=== PATIENT | male | born 1985 | race American Indian/Alaskan Native ===

== ENCOUNTER 2017-11-12 17:14 | Emergency (ER) | payer OTHER ==
[2017-11-12 17:22] VITALS: BP 119/76
--- NOTE | 2017-11-12 17:58 | Emergency Department Report ---
ED Laceration HPI - HPI Occurred When: Today Location: Upper Extremity Severity: mild Tetanus Status: Up to Date (05/2017) Laceration Symptoms: Yes Pain, No Foreign Body Sensation, No Numbness, No Weakness Other History: This is a 32-year-old male that presents with a laceration to left ring finger. They stated that he was pulling out something from his pocket and unknown piece of item causing laceration. Patient states that he is up-to-date tetanus as of May 2017. Patient denies any pus, drainage, fever , chills, nausea, vomiting, headache or stiff neck. Patient allergies tramadol. Past medical history includes HIV status ED for count is within normal limits. <MAI MCCANN - Last Filed: 11/12/17 17:53> <JOSSELYN MOISE - Last Filed: 11/13/17 19:19> - HPI Chief Complaint: Wound/Laceration Stated Complaint: FINGER INJURY Time Seen by Provider: 11/12/17 17:29 ED Review of Systems ROS: Stated complaint: FINGER INJURY Other details as noted in HPI Constitutional: denies: chills, fever Eyes: denies: eye pain, eye discharge, vision change ENT: denies: ear pain, throat pain Respiratory: denies: cough, shortness of breath, wheezing Cardiovascular: denies: chest pain, palpitations Endocrine: no symptoms reported Gastrointestinal: denies: abdominal pain, nausea, diarrhea Genitourinary: denies: urgency, dysuria Musculoskeletal: denies: back pain, joint swelling, arthralgia Skin: denies: rash, lesions Neurological: denies: headache, weakness, paresthesias Psychiatric: denies: anxiety, depression Hematological/Lymphatic: denies: easy bleeding, easy bruising <MAI MCCANN - Last Filed: 11/12/17 17:53> ROS: Stated complaint: FINGER INJURY Other details as noted in HPI <JOSSELYN MOISE - Last Filed: 11/13/17 19:19> ED Past Medical Hx - Past Medical History Previous Medical History?: Yes Hx HIV: Yes - Surgical History Past Surgical History?: No - Social History Smoking Status: Current Every Day Smoker Substance Use Type: Marijuana <MAI MCCANN - Last Filed: 11/12/17 17:53> <JOSSELYN MOISE - Last Filed: 11/13/17 19:19> - Medications Home Medications: Home Medications Medication Instructions Recorded Confirmed Last Taken Type HYDROcodone/ACETAMINOPHEN 1 tab PO Q6H PRN 09/27/13 09/27/13 09/27/13 History [Hydrocodon-Acetaminophen 5-300 mg] Ondansetron [Zofran] 4 mg PO Q8HR PRN 09/27/13 09/27/13 09/27/13 History Promethazine [Phenergan] 25 mg TN Q6HR PRN 09/27/13 09/27/13 09/27/13 History Ranitidine HCl [Zantac] 300 mg PO QDAY 09/27/13 09/27/13 09/27/13 History Amitriptyline [Elavil] 50 mg PO QHS #30 tab 09/28/13 Unknown Rx Ibuprofen [Motrin] 600 mg PO Q8H PRN #30 tablet 11/12/17 Unknown Rx Sulfamethoxazole/Trimethoprim 1 each PO BID #14 tablet 11/12/17 Unknown Rx [Bactrim DS TAB] Laceration Physical Exam - Exam General: Vital signs noted. No distress. Alert and acting appropriately. GENERAL: The patient is a well-developed, well-nourished in no apparent distress. Patient is alert and acting appropriately for age. Alert and oriented 3, no apparent distress, normal gait, atraumatic. HEENT: Head is normocephalic and atraumatic. PERRL, Extraocular muscles are intact. Pupils are equal, round, and reactive to light and accommodation. Nares appeared normal. Mouth is well hydrated and without lesions. Mucous membranes are moist. Posterior pharynx clear of any exudate or lesions. Mouth is well hydrated and without lesions. Tonsils not erythematous or swollen. Uvula midline. Tongue elevated. Mucous members are moist. Posterior pharynx clear, no exudate or lesions. Patent airways. NECK: Supple. No carotid bruits. No lymphadenopathy or thyromegaly.nontender. No meningitic signs are noted. LUNGS: Clear to auscultation. Non labor breathing. No intercostal retractions. Symmetrical with respiration, no wheezing, no rales, or crackles. HEART: Regular rate and rhythm without murmur, rubs or gallops. No reproducible. S1, S2 present, regular rate and rhythm without murmur, no rubs, no gallops. ABDOMEN: Soft, nontender, and nondistended. Positive bowel sounds. No hepatosplenomegaly was noted. No guarding or rebound tenderness, negative epigastric bruit. Negative psoas sign, negative herman sign, negative McBurneys sign EXTREMITIES: Without any cyanosis, clubbing, rash, lesions or edema. Peripheral pulses intact. Capillary refill less than 2 seconds. Full range of motion bilaterally. NEUROLOGIC: Cranial nerves II through XII are grossly intact. Alert and oriented x 3. Normal gait. Symmetrical strength and sensation. Reflexes 2+ throughout. Cerebellar testing normal. GCS score of 15. PSYCHIATRIC: Normal affect with no suicidal or homicidal ideations. Skin: One centimeter superficial laceration to left ring finger. Tender to touch. Wound Length (cm): 1 Laceration Location: Upper Extremity Laceration Exam: Yes Normal Distal CMS, No Foreign Body, No Exposed Tendon, Vessel, or Nerve, No Tendon Injury <MAI MCCANN - Last Filed: 11/12/17 17:53> - Exam General: Vital signs noted. No distress. Alert and acting appropriately. <JOSSELYN MOISE - Last Filed: 11/13/17 19:19> ED Course Vital Signs 11/12/17 17:16 Temperature 98.0 F Pulse Rate 77 Respiratory 18 Rate Blood Pressure 119/76 O2 Sat by Pulse 100 Oximetry - Reevaluation(s) Reevaluation #1: 11/12/17 18:30 Patient is speaking in full sentences with no signs of distress noted. <MAI MCCANN - Last Filed: 11/12/17 17:53> Vital Signs 11/12/17 17:16 Temperature 98.0 F Pulse Rate 77 Respiratory 18 Rate Blood Pressure 119/76 O2 Sat by Pulse 100 Oximetry <JOSSELYN MOISE - Last Filed: 11/13/17 19:19> - Laceration /Wound Repair Left Finger Wound Location: upper extremity (left ring finger) Wound's Depth, Shape: superficial Wound Explored: clean Irrigated w/ Saline (ccs): 40 Betadine Prep?: Yes Wound Repaired With: Dermabond Layer Closure?: No Sterile Dressing Applied?: Yes Progress: Under sterile field, I used Betadine to clean the area. I then used 40 mL of normal saline to flush the area. I then use Dermabond to approximate the laceration. I then applied a sterile 4 x 4 with tape. Minimal bleeding noted but is under control. Patient tolerated procedure well with no signs of distress. <MAI MCCANN - Last Filed: 11/12/17 17:53> ED Medical Decision Making - Medical Decision Making I was available for consultations at all times during the patient stay. I did not personally see and was not involved in the care of the patient. <JOSSELYN MOISE - Last Filed: 11/13/17 19:19> Critical care attestation.: If time is entered above; I have spent that time in minutes in the direct care of this critically ill patient, excluding procedure time. <MAI MCCANN - Last Filed: 11/12/17 17:53> Critical care attestation.: If time is entered above; I have spent that time in minutes in the direct care of this critically ill patient, excluding procedure time. <JOSSELYN MOISE - Last Filed: 11/13/17 19:19> ED Disposition Is pt being admited?: No Does the pt Need Aspirin: No <MAI MCCANN - Last Filed: 11/12/17 17:53> <JOSSELYN MOISE - Last Filed: 11/13/17 19:19> Disposition: DC-01 TO HOME OR SELFCARE Condition: Stable Instructions: Laceration (ED), Skin Adhesive Care (ED) Additional Instructions: Follow-up with a primary care doctor in 3-5 days or if symptoms worsen and continue return to emergency room as soon as possible. Prescriptions: Ibuprofen [Motrin] 600 mg PO Q8H PRN #30 tablet PRN Reason: Pain Sulfamethoxazole/Trimethoprim [Bactrim DS TAB] 1 each PO BID #14 tablet Referrals: PRIMARY CARE, [Primary Care Provider] - 3-5 Days LAUREANO RAHMAN MD [Staff Physician] - 3-5 Days [facility] [Outside] - 3-5 Days [facility] [Outside] - 3-5 Days Forms: Work/School Release Form(ED)
== END 2017-11-12 18:50 | disposition home or self-care (01) ==
LOC: ED 17:14
DX: S61.215A Laceration without foreign body of left ring finger without damage to nail, initial encounter (principal); F17.200 Nicotine dependence, unspecified, uncomplicated; F12.10 Cannabis abuse, uncomplicated; Z88.6 Allergy status to analgesic agent; W26.9XXA Contact with unspecified sharp object(s), initial encounter; Y93.89 Activity, other specified; Y99.8 Other external cause status; Y92.89 Other specified places as the place of occurrence of the external cause
CPT/HCPCS: 99282